=== PATIENT | female | born 1985 | race African-American/Black ===

== ENCOUNTER → 2017-12-02 | Outpatient (REF) | payer OTHER ==
[2017-12-02 13:48] LABS: APPEARANCE, URINE CLEAR (CLEAR); BACTERIA, URINE AUTO NEGATIVE (NEGATIVE); BILIRUBIN, URINE AUTO NEGATIVE (NEGATIVE); BLOOD, URINE BLOOD NEGATIVE (NEGATIVE); COLOR, URINE YELLOW (YELLOW); GLUCOSE, URINE (UA) AUTO NEGATIVE (NEGATIVE); KETONE, URINE AUTO NEGATIVE (NEGATIVE); LEUKOCYTE ESTERASE, URINE AUTO NEGATIVE (NEGATIVE); NITRITE, URINE AUTO NEGATIVE (NEGATIVE); PROTEIN, URINE AUTO NEGATIVE (NEGATIVE); RBC, URINE AUTO 0 /HPF (0-3); SPECIFIC GRAVITY URINE AUTO 1.015 (1.002-1.035); SQUAMOUS EPITHELIAL CELL UR AU 0 /HPF (0-6); UROBILINOGEN, URINE AUTO 0.2 mg/dL (0.0-2.0); WBC, URINE AUTO 0 /HPF (0-3)
== END ==
LOC: M SMT 13:01
DX: N39.46 Mixed incontinence (principal)

== ENCOUNTER → 2018-04-28 | Outpatient (REF) | payer OTHER | LOC: M LAB REF 13:42 | PROVIDERS: ATTEND Specialist | DX: N39.46 Mixed incontinence (principal); N89.8 Other specified noninflammatory disorders of vagina ==